=== PATIENT | male | born 1965 | race Two or more races ===

== ENCOUNTER 2024-07-23 08:57 | Emergency (ER) | payer MEDICAID, SELFPAY ==
[2024-07-23 09:16] VITALS: BP 133/82; PULSE 80; RESP 19; TEMP 36.6; O2SAT 97; BMI 31.6
--- NOTE | 2024-07-23 09:23 | XR_ITS ---
Examination: Foot, right, 3 views Technique: AP, oblique, lateral views foot, 3 views Date and time of exam: July 23, 2024 0932 hrs. Indications: Onset right heel pain beginning 2 weeks ago Findings: No acute fracture No dislocation Minor ossification in the Achilles insertion into the calcaneus No deon cortical bone obstruction Impression: No fracture No deon cortical bone obstruction If early osteomyelitis is a clinical consideration suggest MRI ankle without contrast follow-up
--- NOTE | 2024-07-23 09:54 | PD.EDWOUND ---
ED Wound/Laceration-RME/HPI General Chief Complaint: Wound/Laceration Stated Complaint: RIGHT FOOT WOUND INFECTION Time Seen by Provider: 07/23/24 09:16 Arrival date/time: 07/23/24 08:57 59-year-old male presents emergency department complains of skin sore to the right foot patient reports being diabetic has not taken his medication over a week Limitations: no limitations Related Data Previous Rx's ?Medication ?Instructions ?Recorded cyclobenzaprine 10 mg tablet 10 mg PO TID PRN muscle spasm #30 01/07/22 tabs ibuprofen 800 mg tablet 800 mg PO TID PRN pain #30 tabs 01/07/22 metformin 500 mg tablet 500 mg PO BID #60 tabs 01/07/22 clindamycin HCl 300 mg capsule 300 mg PO TID 7 days #21 caps 07/23/24 ibuprofen 800 mg tablet 800 mg PO TID PRN pain #30 tabs 07/23/24 Allergies Allergy/AdvReac Type Severity Reaction Status Date / Time No Known Allergies Allergy Verified 07/23/24 09:00 Review of Systems Review of Systems Systems Reviewed: All systems reviewed, normal except as documented Constitutional Constitutional: Reports system reviewed and no additional complaints, except as documented, Denies fever(s) and Denies headache(s) Eyes Eyes: Reports system reviewed and no additional complaints, except as documented and Denies blurry vision ENT Ears, Nose, Mouth, and Throat: Reports system reviewed and no additional complaints, except as documented, Denies headache(s), Denies nasal congestion and Denies nasal discharge Cardiovascular Cardiovascular: Reports system reviewed and no additional complaints, except as documented, Denies chest pain and Denies dyspnea Respiratory Respiratory: Reports system reviewed and no additional complaints, except as documented, Denies chest congestion, Denies cough and Denies dyspnea Gastrointestinal Gastrointestinal: Reports system reviewed and no additional complaints, except as documented and Denies abdominal pain Musculoskeletal Musculoskeletal: Reports system reviewed and no additional complaints, except as documented, Reports abnormal gait, Reports arthralgias, Denies deformity, Denies joint swelling, Denies numbness, Reports stiffness and Denies tingling Integumentary/Breasts Skin/Breast: Reports system reviewed and no additional complaints, except as documented and Denies rash Neurologic Neurologic: Reports system reviewed and no additional complaints, except as documented, Reports as per HPI, Reports abnormal gait, Denies headache(s), Denies numbness and Denies tingling Past Medical History Past Medical History NEUROLOGIC: Negative Cerebrovascular Accident or Alzheimer's Disease CARDIAC: Negative Cardiac Disorders, Myocardial Infarction, Angina or Congestive Heart Failure RESPIRATORY: Negative Chronic Obstructive Pulmonary Disease (COPD) or Emphysema GASTROINTESTINAL: Negative Liver Cancer or Pancreatic Cancer GENITOURINARY: Negative Renal Disease MUSCULOSKELETAL: Negative Muscular Dystrophy or Bone Cancer ENDOCRINE: Negative Endocrine Disorders, Diabetes Mellitus Type 1 or Diabetes Mellitus Type 2 HEMATOLOGIC: Negative Blood Disorders OTHER HISTORY: Negative Down Syndrome or Developmental Delay Social History SMOKING STATUS: Never smoker SUBSTANCE USE: does not use ED Exam General Limitations: Present no limitations General appearance: Present alert and in no apparent distress Head Head exam: Present atraumatic Eye Eye exam: Present normal appearance, PERRL and EOMI ENT ENT exam: Present normal exam, normal oropharynx and mucous membranes moist Neck Neck exam: Present normal inspection, full ROM and trachea midline Chest Chest inspection: Present normal inspection and symmetric chest wall rise Respiratory Respiratory exam: Present normal lung sounds bilaterally Cardiovascular Cardiovascular exam: Present regular rate, normal rhythm and normal heart sounds Abdominal Exam Abdominal exam: Present soft and normal bowel sounds Extremities Exam Extremities exam: Present full ROM, tenderness, normal capillary refill and other (Right foot pain); Absent joint swelling Back Exam Back exam: Present normal inspection and full ROM Neurological Exam Neurological exam: Present alert, oriented X3 and CN II-XII intact Psychiatric Psychiatric exam: Present normal affect and normal mood Skin Skin exam: Present warm, dry, intact and normal color Course Quality Measures none Orders Category Date Time Status XR foot comp RT min 3V Stat Exams 07/23/24 09:23 Completed Ibuprofen Tab [Motrin Tab] Med 07/23/24 09:23 Discontinued 800 mg PO X1 ONE Lidocaine 1% 20 ml [Xylocaine 1% 20 ML] Med 07/23/24 09:54 Discontinued 2.1 ml INFL X1 ONE cefTRIAXone [Rocephin] Med 07/23/24 09:54 Discontinued 1,000 mg IM X1 ONE Vital Signs Vital signs: Vital Signs Temperature 97.8 F 07/23/24 09:16 Pulse Rate 80 07/23/24 09:16 Respiratory Rate 19 07/23/24 09:16 Blood Pressure 133/82 H 07/23/24 09:16 Pulse Oximetry (%) 97 07/23/24 09:16 Oxygen Delivery Method Room Air 07/23/24 09:16 O2 saturation 97% room air wnl Wound / Laceration MDM Narrative MDM Narrative:: 59-year-old male presents emergency department complains of skin sore to the right foot patient reports being diabetic has not taken his medication over a week Patient well-appearing patient does not appear toxic in no acute distress On exam patient has small skin sore lateral aspect right foot and the right heel region Symptoms appear to be mild no drainage no ulceration X-ray of the right foot obtained no acute osteomyelitis noted Patient given Rocephin discharged with antibiotics Patient directed to take medication as prescribed and ask for referral to wound care For emergent concerns patient struck to return immediately Patient data External records reviewed:: [facility] previous records Clinical information provided by:: patient Social determinants that could affect healthcare access:: none Patient has the following chronic illnesses:: Diabetes How is presenting disease/condition affected by chronic disease/condition?: exacerbated by Evaluation data The following diagnostics were reviewed and interpreted by me:: radiology exam(s) Lab and/or radiology exams considered but not ordered:: Radiology obtained Interpretation Summary: Reviewed by me Medications / Prescriptions Medications or Prescriptions considered but not ordered:: Given Medication administrations:: Medication Administration History Discontinued Medications Ceftriaxone Sodium (Ceftriaxone Sod Inj 1,000 Mg Vial) 1,000 mg IM X1 ONE Stop: 07/23/24 09:55 Last Admin: 07/23/24 10:10 Dose: 1,000 mg Documented By: ARF Ibuprofen (Ibuprofen Tab 400 Mg Tablet) 800 mg PO X1 ONE Stop: 07/23/24 09:24 Last Admin: 07/23/24 10:10 Dose: 800 mg Documented By: ARF Lidocaine HCl (Lidocaine Hcl 1% 20 Ml Vial) 2.1 ml INFL X1 ONE Stop: 07/23/24 09:55 Last Admin: 07/23/24 10:11 Dose: 2.1 ml Documented By: ARF Given Consultations Consultation(s) initiated? (list below): No Diagnosis Wound Differential Diagnosis: abscess, abrasion and other (Skin sore, diabetic ulcer) Most likely diagnosis given after review of the tests above:: Skin sore foot Admission Indicated Admission indicated?: not indicated Admission Request Was there a request for admission?: No Disposition Plan Disposition Plan: Discharge Discharge Attestation Discharge Attestation: The patient and all family members were given an opportunity to ask questions and understood the discharge instructions. Discharge instructions specifically effects, indications for sooner follow up or return to the emergency department, and the expected course of current diagnosis. Patient condition: Stable Discharge Plan Plan Patient Disposition: HOME (Self Care) Disposition Comment: Stable Prescriptions/Referrals Prescriptions/Med Rec: New clindamycin HCl 300 mg capsule 300 mg PO TID 7 Days Qty: 21 0RF ibuprofen 800 mg tablet 800 mg PO TID PRN (Reason: pain) Qty: 30 0RF No Action cyclobenzaprine 10 mg tablet 10 mg PO TID PRN (Reason: muscle spasm) Qty: 30 0RF metformin 500 mg tablet 500 mg PO BID Qty: 60 0RF ibuprofen 800 mg tablet 800 mg PO TID PRN (Reason: pain) Qty: 30 0RF Referrals: No Primary/Family,Physician [Primary Care Provider] - 07/25/24 Problem List Clinical Impression: Skin sore Patient/Caregiver Discharge Instructions Additional Instructions: Please follow up with your primary care doctor in the next 24-48hrs for any worsening symptoms return here immediately Please take all your medications as prescribed Print Language: Malay Stand Alone Forms: Melanie Award Info., Patient Portal Info Letter PA/ROBERTO Supervising Physician MARSHA/ROBERTO Supervising Physician: Dr nickerson
[2024-07-23] MEDS: IBUPROFEN TAB 400 MG TABLET 800 MG PO (10:10)
[2024-07-23] MEDS: cefTRIAXone SOD INJ 1,000 MG VIAL 1000 MG IM (10:10)
[2024-07-23] MEDS: LIDOCAINE HCL 1% 20 ML VIAL 2.1 ML INFL (10:11)
== END 2024-07-23 10:17 | disposition home or self-care (01) ==
PROVIDERS: Emergency Provider Emergency Medicine
DX: E11.621 Type 2 diabetes mellitus with foot ulcer (principal); L97.419 Non-pressure chronic ulcer of right heel and midfoot with unspecified severity; Z79.84 Long term (current) use of oral hypoglycemic drugs
CPT/HCPCS: 73630; 96372; 99283; J0696; J3490; A9270

== ENCOUNTER → 2024-09-09 | Outpatient (CLI) | payer MEDICAID, SELFPAY ==
--- NOTE | 2024-09-09 09:46 | XR_ITS ---
Examination: Lumbar spine 3 views Technique one AP lateral coned lateral lower lumbar spine 3 views Exam date and time: September 09, 2024 0959 hours Comparison November 12, 2022 INDICATIONS: Lower back pain radiating down the right leg after lifting injury 3 days ago, chronic low back pain years, lumbar spine surgery 2 years ago. FINDINGS: Moderate osteopenia Lumbar levoscoliosis 8 degrees Transpedicular lumbar stabilization L3-S1 with satisfactory alignment Diffuse advanced lumbar degenerative disc disease Moderate lumbar spondylosis No lumbar fracture IMPRESSION: Diffuse advanced lumbar degenerative disc disease, most severe above the stabilization site, L2-L3 No lumbar fracture
== END | disposition home or self-care (01) ==
PROVIDERS: PCP Nurse Practitioner Family; Referring Provider Nurse Practitioner Family; Visit Provider Nurse Practitioner Family
DX: S39.92XA Unspecified injury of lower back, initial encounter (principal); X58.XXXA Exposure to other specified factors, initial encounter; M51.369 Other intervertebral disc degeneration, lumbar region without mention of lumbar back pain or lower extremity pain
CPT/HCPCS: 72100

== ENCOUNTER 2024-11-15 09:36 | Emergency (ER) | payer MEDICAID, SELFPAY ==
[2024-11-15 09:50] VITALS: BP 149/96; PULSE 91; RESP 18; TEMP 36.9; O2SAT 95; BMI 30.7
[2024-11-15] MEDS: OXYMETAZOLINE NAS SPRY 0.05% 15 ML BTL NASAL (10:08)
[2024-11-15 10:30] LABS: Basophils # (Auto) 0.1 Thou/mm3 (0.0-0.2); Basophils % (Auto) 1 % (0-2.5); Eosinophils # (Auto) 0.1 Thou/mm3 (0.0-0.5); Eosinophils % (Auto) 2 % (0-10); Hematocrit 40.1 % (41.0-53.0); Hemoglobin 14.2 g/dL (13.5-16.0); Immature Granulocytes % (Auto) 0 % (0-0); Immature Granulocytes Auto 0.02 Thou/mm3 (0.00-0.00); Lymphocytes % (Auto) 16 % (10-50); Mean Corpuscular HGB Conc 35.4 g/dl (31.0-37.0); Mean Corpuscular Hemoglobin 30.8 pg (25.0-35.0); Mean Corpuscular Volume 87 fL (80-100); Monocytes # (Auto) 0.5 Thou/mm3 (0.0-0.8); Monocytes % (Auto) 8 % (0-12); Neutrophils # (Auto) 4.8 Thou/mm3 (1.8-7.7); Neutrophils % (Auto) 73 % (37-80); Nucleated Red Blood Cell % 0 /100 WBC (0); Platelet Count 252 Thou/mm3 (140-440); RDW Standard Deviation 38.4 fL (35.1-43.9); Red Blood Count 4.61 Miln/mm3 (4.50-5.90); White Blood Count 6.6 Thou/mm3 (3.8-10.6)
[2024-11-15 10:50] LABS: INR 1.1 (0.9-1.3); Partial Thromboplastin Time 27.3 Seconds (22.0-36.0); Prothrombin Time 11.5 Seconds (9.0-12.2)
[2024-11-15 11:05] LABS: Alanine Aminotransferase 19 U/L (10-49); Albumin, Serum 4.2 gm/dL (3.5-5.0); Albumin/Globulin Ratio 1.7 (1.2-2.2); Alkaline Phosphatase 134 U/L (46-116); Anion Gap 8 (7-16); Aspartate Amino Transferase 25 U/L (0-34); BUN/Creatinine Ratio 16 Ratio (12-20); Bilirubin,Total 0.5 mg/dL (0.3-1.2); Blood Urea Nitrogen 13 mg/dL (9-23); Calcium 9.4 mg/dL (8.3-10.6); Calcium (Corrected) 9.4 mg/dL (8.5-10.1); Chloride 104 mMol/L (98-107); Creatinine (Component) 0.8 mg/dL (0.6-1.3); Estimated Creatinine Clearance 100.3 mL/min (>60); Globulin 2.5 gm/dL (2.3-3.5); Glucose 268 mg/dL (74-106); Osmolality,Calculated 282 (275-295); Potassium 3.5 mMol/L (3.4-5.1); Sodium 137 mMol/L (136-145); Total Protein 6.7 gm/dL (5.7-8.2); eGFR > 60 See Note
--- NOTE | 2024-11-15 11:20 | PD.EDEPIST ---
ED Epistaxis RME/HPI General Chief complaint: Epistaxis/Nasal Foreign Body Stated complaint: NOSEBLEED ON/OFF. WOKE UP THIS AM W/ NOSEBLEED Time Seen by Provider: 11/15/24 09:39 Arrival date/time: 11/15/24 09:36 59-year-old male history significant for diabetes presents for concerns for nosebleed from the left nare today patient reports no recent injury no headache dizziness or weakness Limitations: no limitations Related Data Previous Rx's ?Medication ?Instructions ?Recorded cyclobenzaprine 10 mg tablet 10 mg PO TID PRN muscle spasm #30 01/07/22 tabs ibuprofen 800 mg tablet 800 mg PO TID PRN pain #30 tabs 01/07/22 metformin 500 mg tablet 500 mg PO BID #60 tabs 01/07/22 ibuprofen 800 mg tablet 800 mg PO TID PRN pain #30 tabs 07/23/24 Allergies Allergy/AdvReac Type Severity Reaction Status Date / Time No Known Allergies Allergy Verified 11/15/24 09:39 Review of Systems Review of Systems Systems Reviewed: All systems reviewed, normal except as documented Constitutional Constitutional: Reports system reviewed and no additional complaints, except as documented, Denies fever(s) and Denies headache(s) Eyes Eyes: Reports system reviewed and no additional complaints, except as documented and Denies blurry vision ENT Ears, Nose, Mouth, and Throat: Reports system reviewed and no additional complaints, except as documented, Reports epistaxis, Denies headache(s), Denies nasal congestion and Denies nasal discharge Cardiovascular Cardiovascular: Reports system reviewed and no additional complaints, except as documented, Denies chest pain and Denies dyspnea Respiratory Respiratory: Reports system reviewed and no additional complaints, except as documented, Denies chest congestion, Denies cough and Denies dyspnea Gastrointestinal Gastrointestinal: Reports system reviewed and no additional complaints, except as documented and Denies abdominal pain Integumentary/Breasts Skin/Breast: Reports system reviewed and no additional complaints, except as documented and Denies rash Neurologic Neurologic: Reports system reviewed and no additional complaints, except as documented, Reports as per HPI and Denies headache(s) Past Medical History Past Medical History NEUROLOGIC: Negative Cerebrovascular Accident or Alzheimer's Disease CARDIAC: Negative Cardiac Disorders, Myocardial Infarction, Angina or Congestive Heart Failure RESPIRATORY: Negative Chronic Obstructive Pulmonary Disease (COPD) or Emphysema GASTROINTESTINAL: Negative Liver Cancer or Pancreatic Cancer GENITOURINARY: Negative Renal Disease MUSCULOSKELETAL: Negative Muscular Dystrophy or Bone Cancer ENDOCRINE: Negative Endocrine Disorders, Diabetes Mellitus Type 1 or Diabetes Mellitus Type 2 HEMATOLOGIC: Negative Blood Disorders OTHER HISTORY: Negative Down Syndrome or Developmental Delay Social History SMOKING STATUS: Current some day smoker SUBSTANCE USE: does not use ED Exam General Limitations: Present no limitations General appearance: Present alert and in no apparent distress Head Head exam: Present atraumatic, normocephalic and normal inspection Eye Eye exam: Present normal appearance, PERRL and EOMI ENT ENT exam: Present normal oropharynx and mucous membranes moist Expanded ENT Exam Nasal speculum exam: Left: epistaxis Neck Neck exam: Present normal inspection, full ROM and trachea midline Chest Chest inspection: Present normal inspection and symmetric chest wall rise Respiratory Respiratory exam: Present normal lung sounds bilaterally Cardiovascular Cardiovascular exam: Present regular rate, normal rhythm and normal heart sounds Abdominal Exam Abdominal exam: Present soft and normal bowel sounds Extremities Exam Extremities exam: Present normal inspection and full ROM Back Exam Back exam: Present normal inspection and full ROM Neurological Exam Neurological exam: Present alert, oriented X3 and CN II-XII intact Psychiatric Psychiatric exam: Present normal affect and normal mood Skin Skin exam: Present warm, dry, intact and normal color Course Quality Measures none Orders Category Date Time Status CBC Stat Lab 11/15/24 10:14 Completed Comprehensive Metabolic Panel Stat Lab 11/15/24 10:14 Completed Partial Thromboplastin Time Stat Lab 11/15/24 10:14 Completed Prothrombin Time with INR Stat Lab 11/15/24 10:14 Completed Oxymetazoline [place] 0.05% [Afrin Nasal [place]] Med 11/15/24 09:55 Discontinued See Dose Instructions NASAL X1 ONE Vital Signs Vital signs: Vital Signs Temperature 98.4 F 11/15/24 09:50 Pulse Rate 91 11/15/24 09:50 Respiratory Rate 18 11/15/24 09:50 Blood Pressure 149/96 H 11/15/24 09:50 Pulse Oximetry (%) 95 11/15/24 09:50 Oxygen Delivery Method Room Air 11/15/24 09:50 O2 saturation 95% room air with normal limits Epistaxis MDM Narrative MDM Narrative:: 59-year-old male history significant for diabetes presents for concerns for nosebleed from the left nare today patient reports no recent injury no headache dizziness or weakness On exam patient well-appearing patient does not appear ill or toxic patient's not appear in acute distress On exam patient does have nosebleed left nare Afrin spray applied nose packed while in the ER Lab work obtained no acute emergent findings noted Packing is removed patient has no active bleeding I did explain to the patient there is a possibility of rebleeding should symptoms persist or worsen he is instructed to return for reevaluation Patient discharged home in no distress to follow-up with primary care doctor in the next 24 to 48 hours and for any worsening symptoms to return to the ER immediately Patient data External records reviewed:: [facility] previous records Clinical information provided by:: patient Social determinants that could affect healthcare access:: none Patient has the following chronic illnesses:: None How is presenting disease/condition affected by chronic disease/condition?: no chronic disease Evaluation data The following diagnostics were reviewed and interpreted by me:: lab results Lab and/or radiology exams considered but not ordered:: Lab obtained Interpretation Summary: Reviewed by me Medications / Prescriptions Medications or Prescriptions considered but not ordered:: Given Medication administrations:: Medication Administration History Discontinued Medications Oxymetazoline HCl (Oxymetazoline [place] 0.05% 15 Ml Btl) 0 spray NASAL X1 ONE Stop: 11/15/24 09:56 Last Admin: 11/15/24 10:08 Dose: 2 spray Documented By: OA Given Consultations Consultation(s) initiated? (list below): No Diagnosis Epistaxis Differential Diagnosis: anterior epistaxis and posterior epistaxis Most likely diagnosis given after review of the tests above:: Nosebleed Admission Indicated Admission indicated?: not indicated Admission Request Was there a request for admission?: No Disposition Plan Disposition Plan: Discharge Discharge Attestation Discharge Attestation: The patient and all family members were given an opportunity to ask questions and understood the discharge instructions. Discharge instructions specifically effects, indications for sooner follow up or return to the emergency department, and the expected course of current diagnosis. Patient condition: Stable Discharge Plan Plan Patient Disposition: HOME (Self Care) Disposition Comment: Stable Prescriptions/Referrals Prescriptions/Med Rec: No Action cyclobenzaprine 10 mg tablet 10 mg PO TID PRN (Reason: muscle spasm) Qty: 30 0RF metformin 500 mg tablet 500 mg PO BID Qty: 60 0RF ibuprofen 800 mg tablet 800 mg PO TID PRN (Reason: pain) Qty: 30 0RF ibuprofen 800 mg tablet 800 mg PO TID PRN (Reason: pain) Qty: 30 0RF Referrals: No Primary/Family,Physician [Primary Care Provider] - In 1 week Problem List Clinical Impression: Anterior epistaxis Patient/Caregiver Discharge Instructions Education Materials: ED Epistaxis (Adult) Additional Instructions: Please follow up with your primary care doctor in the next 24-48hrs for any worsening symptoms return here immediately Print Language: Serbian Stand Alone Forms: Melanie Award Info., Patient Portal Info Letter PA/OBSTETRICAL ANESTHESIOLOGIST Supervising Physician PA/OBSTETRICAL ANESTHESIOLOGIST Supervising Physician: Dr so
== END 2024-11-15 12:47 | disposition home or self-care (01) ==
PROVIDERS: Nurse Practitioner Primary Care; Emergency Provider Emergency Medicine
DX: R04.0 Epistaxis (principal)
CPT/HCPCS: 36415; 80053; 85025; 85610; 85730; 99283; A9270

== ENCOUNTER → 2024-11-23 | Outpatient (CLI) | payer MEDICAID, SELFPAY ==
--- NOTE | 2024-11-23 08:30 | XR_ITS ---
Examination: MRI lumbar spine without contrast Date and time of exam: November 23, 2024 0826 hours Comparison January 07, 2022 INDICATIONS: Low back pain beginning 3 years ago, status post lumbar spine surgery 2021 Technique: Multiple MRI axial and sagittal sections lumbar spine. Sagittal T2-weighted images, TR 3500, TE 118 T1 weighted transverse sections, TR 688 T8.5, T2-weighted sagittal sections T1 weighted sagittal sections TR 621, TE 30 T2 axial sections, TR 4, 190, TE 84. Findings: Transpedicular lumbar stabilization L3-S1 with satisfactory alignment Diffuse lumbar disc desiccation L5-S1 6 mm central lumbar disc bulge extending to the foraminal regions with mild bilateral L5 ganglionic compression L2-L3 4 mm central lumbar disc bulge IMPRESSION: Status post lumbar stabilization L3-S1 with anatomic alignment L5-S1 6 mm central lumbar disc bulge extending to the foraminal regions with mild bilateral L5 ganglionic compression L2-L3 4 mm central lumbar disc bulge
== END | disposition home or self-care (01) ==
PROVIDERS: PCP Nurse Practitioner Family; Referring Provider Nurse Practitioner Family; Visit Provider Nurse Practitioner Family
DX: G95.20 Unspecified cord compression (principal); M51.369 Other intervertebral disc degeneration, lumbar region without mention of lumbar back pain or lower extremity pain
CPT/HCPCS: 72148

== ENCOUNTER → 2025-02-08 | Outpatient (CLI) | payer MEDICAID, SELFPAY ==
--- NOTE | 2025-02-08 | XR_ITS ---
Examination: Wrist, right 2 views Technique: Wrist AP, lateral right wrist 2 views Date and time of exam: February 08, 2025 1140 hours INDICATIONS: Right wrist pain beginning 5 days ago. FINDINGS: Mild osteoarthritis radiocarpal navicular trapezium first carpometacarpal joints No fractures No erosive arthritis IMPRESSION: Osteoarthritis as above
--- NOTE | 2025-02-08 | XR_ITS ---
Examination: Right hand 2 views Technique one AP lateral right hand 2 views Date and time: February 08, 2025 1142 hours INDICATIONS: Right hand pain beginning 5 days ago. FINDINGS: Mild osteoarthritis navicular trapezium radiocarpal and first carpometacarpal joints No erosive arthritis Small old bone density 2 mm at the proximal interphalangeal joint fifth digit with mild osteoarthritis at this site IMPRESSION: Mild osteoarthritis as above No erosive arthritis No acute fracture
== END | disposition home or self-care (01) ==
DX: M15.2 Bouchard's nodes (with arthropathy) (principal)
CPT/HCPCS: 73100; 73120

== ENCOUNTER 2025-02-19 07:05 | Emergency (ER) | payer MEDICAID, SELFPAY ==
[2025-02-19 07:07] VITALS: BMI 30.2
[2025-02-19 07:42] VITALS: BP 127/79; PULSE 88; RESP 18; TEMP 36.8; O2SAT 97
--- NOTE | 2025-02-19 07:48 | PD.EDRME ---
Rapid Medical Screening Exam RME Arrival date/time: 02/19/25 07:05 This is a 59-year-old male that comes in with complaints of abdominal pain abdominal cramping nausea vomiting that started last night. Patient has diffuse abdominal pain. Patient has a history of diabetes high blood pressure. I have greeted and performed a focused initial assessment of this patient. Initial appropriate labs ordered at this time. A comprehensive ED assessment and evaluation of the patient and analysis of all test and completion of medical decision making process will be conducted by additional ED provider. Chief Complaint: Nausea/Vomiting/Diarrhea Time Seen by Provider: 02/19/25 07:18 Vital signs: Vital Signs Temperature 98.3 F 02/19/25 07:42 Pulse Rate 88 02/19/25 07:42 Respiratory Rate 18 02/19/25 07:42 Blood Pressure 127/79 02/19/25 07:42 Pulse Oximetry (%) 97 02/19/25 07:42 Oxygen Delivery Method Room Air 02/19/25 07:42
[2025-02-19 08:34] LABS: Alanine Aminotransferase 21 U/L (10-49); Albumin, Serum 4.5 gm/dL (3.5-5.0); Albumin/Globulin Ratio 1.9 (1.2-2.2); Alkaline Phosphatase 110 U/L (46-116); Anion Gap 10 (7-16); Aspartate Amino Transferase 26 U/L (0-34); BUN/Creatinine Ratio 18 Ratio (12-20); Bilirubin,Total 1.2 mg/dL (0.3-1.2); Blood Urea Nitrogen 14 mg/dL (9-23); Calcium 9.6 mg/dL (8.3-10.6); Calcium (Corrected) 9.6 mg/dL (8.5-10.1); Carbon Dioxide 25.6 mMol/L (20.0-31.0); Chloride 102 mMol/L (98-107); Creatinine (Component) 0.8 mg/dL (0.6-1.3); Estimated Creatinine Clearance 99.5 mL/min (>60); Globulin 2.4 gm/dL (2.3-3.5); Glucose 178 mg/dL (74-106); Lipase 69 U/L (12-53); Osmolality,Calculated 280 (275-295); Potassium 4.4 mMol/L (3.4-5.1); Sodium 138 mMol/L (136-145); Total Protein 6.9 gm/dL (5.7-8.2); eGFR > 60 See Note
[2025-02-19 08:39] LABS: Basophils # (Auto) 0.1 Thou/mm3 (0.0-0.2); Basophils % (Auto) 0 % (0-2.5); Eosinophils # (Auto) 0.2 Thou/mm3 (0.0-0.5); Eosinophils % (Auto) 1 % (0-10); Hematocrit 46.2 % (41.0-53.0); Hemoglobin 15.9 g/dL (13.5-16.0); Immature Granulocytes % (Auto) 0 % (0-0); Immature Granulocytes Auto 0.05 Thou/mm3 (0.00-0.00); Lymphocytes # (Auto) 0.5 Thou/mm3 (1.0-4.8); Lymphocytes % (Auto) 4 % (10-50); Mean Corpuscular HGB Conc 34.4 g/dl (31.0-37.0); Mean Corpuscular Hemoglobin 31.1 pg (25.0-35.0); Mean Corpuscular Volume 90 fL (80-100); Monocytes # (Auto) 0.5 Thou/mm3 (0.0-0.8); Monocytes % (Auto) 4 % (0-12); Neutrophils # (Auto) 10.3 Thou/mm3 (1.8-7.7); Neutrophils % (Auto) 90 % (37-80); Nucleated Red Blood Cell % 0 /100 WBC (0); Platelet Count 231 Thou/mm3 (140-440); RDW Standard Deviation 40.1 fL (35.1-43.9); Red Blood Count 5.11 Miln/mm3 (4.50-5.90); White Blood Count 11.5 Thou/mm3 (3.8-10.6)
[2025-02-19 11:14] LABS: Collection Type, Urine Voided
[2025-02-19 11:31] LABS: Bilirubin,Urine Negative (Negative); Blood,Urine Negative (Negative); Clarity,Urine Clear (Clear/Hazy); Color,Urine Yellow (Lt Yel-Yel); Culture Indicated,Urine Not Indicated; Glucose, Urine 2+ (Negative); Ketones,Urine Trace (Negative); Leukocyte Esterase,Urine Negative (Negative); Nitrite,Urine Negative (Negative); PH,Urine 6.5 (5.0-7.0); Protein,Urine Trace (Neg - Trace); RBC,Urine 2 /hpf (0-3); Specific Gravity,Urine 1.034 (1.001-1.035); Squamous Epithelial Cell,Urine 2 /hpf (0-5); Urobilinogen,Urine Negative mg/dL (0.0-1.0); WBC,Urine 4 /hpf (0-5)
[2025-02-19 11:37] LABS: Amphetamine/Methamp Scrn,U Negative (Negative); Barbiturate Screen,Urine Negative (Negative); Benzodiazepines Screen,Urine Negative (Negative); Benzoylecgonine Screen, Ur Negative (Negative); Fentanyl Screen,Urine Negative (Negative); Opiate Screen,Urine Negative (Negative); THC Screen,Urine Negative (Negative)
--- NOTE | 2025-02-19 11:38 | PC.NURSE ---
NO ANSWER X2 [id number]
--- NOTE | 2025-02-19 11:42 | PC.NURSE ---
NO ANSWER X3 PT ELOPED
== END 2025-02-19 11:43 | disposition left against medical advice (07) ==
LOC: SERX 07:52
PROVIDERS: Nurse Practitioner Family; Emergency Provider Family Medicine
DX: Z53.29 Procedure and treatment not carried out because of patient's decision for other reasons (principal); R11.2 Nausea with vomiting, unspecified; E11.9 Type 2 diabetes mellitus without complications
CPT/HCPCS: 36415; 80053; 80307; 81001; 83690; 85025; 99281

== ENCOUNTER 2025-03-05 15:35 | Emergency (ER) | payer MEDICAID, SELFPAY ==
--- NOTE | 2025-03-05 15:40 | PD.EDALLER ---
ED Allergic Reaction RME/HPI General Chief complaint: Allergic Reaction Stated complaint: ITCHING X2 HOURS, TOOK A PILL Time Seen by Provider: 03/05/25 15:37 Arrival date/time: 03/05/25 15:35 Limitations: no limitations RME / HPI RME / HPI narrative: Took Radha Neurobion 2 hours ago and developed diffuse itching. No chest pain, abdominal pain, nausea, or vomiting. He has no chest pain or syncope. He has no wheezing or shortness of breath. He denies any chronic medical conditions or known allergies. Related Data Previous Rx's ?Medication ?Instructions ?Recorded cyclobenzaprine 10 mg tablet 10 mg PO TID PRN muscle spasm #30 01/07/22 tabs ibuprofen 800 mg tablet 800 mg PO TID PRN pain #30 tabs 01/07/22 metformin 500 mg tablet 500 mg PO BID #60 tabs 01/07/22 ibuprofen 800 mg tablet 800 mg PO TID PRN pain #30 tabs 07/23/24 diphenhydramine HCl 25 mg capsule 25 mg PO TID PRN allergy symptoms 03/05/25 (Benadryl) #14 caps prednisone 50 mg tablet 50 mg PO QDAY #5 tabs 03/05/25 Allergies Allergy/AdvReac Type Severity Reaction Status Date / Time No Known Allergies Allergy Verified 03/05/25 15:38 Review of Systems Review of Systems Systems Reviewed: All systems reviewed, normal except as documented ED Exam General Limitations: Present no limitations General appearance: Present alert and in distress Head Head exam: Present atraumatic Eye Eye exam: Present normal appearance, PERRL and EOMI ENT ENT exam: Present normal exam, normal oropharynx and mucous membranes moist Neck Neck exam: Present normal inspection, full ROM and trachea midline Chest Chest inspection: Present normal inspection and symmetric chest wall rise Respiratory Respiratory exam: Present normal lung sounds bilaterally; Absent respiratory distress or wheezes Cardiovascular Cardiovascular exam: Present regular rate, normal rhythm and normal heart sounds Abdominal Exam Abdominal exam: Present soft Extremities Exam Extremities exam: Present normal inspection and full ROM Back Exam Back exam: Present normal inspection and full ROM Neurological Exam Neurological exam: Present alert and oriented X3 Psychiatric Psychiatric exam: Present normal affect and normal mood Skin Skin exam: Present warm, dry, intact and normal color Course Quality Measures none Orders Category Date Time Status Dexamethasone Inj [Decadron Inj] Med 03/05/25 15:37 Discontinued 8 mg IM X1 ONE DiphenhydrAMINE INJ [Benadryl Inj] Med 03/05/25 15:37 Discontinued 50 mg IM X1 ONE Famotidine [Pepcid] Med 03/05/25 15:38 Discontinued 20 mg PO X1 ONE Vital Signs Vital signs: Vital Signs Temperature 98.6 F 03/05/25 15:43 Pulse Rate 98 03/05/25 15:43 Respiratory Rate 26 H 03/05/25 15:43 Blood Pressure 130/82 03/05/25 15:43 Pulse Oximetry (%) 97 03/05/25 15:43 Oxygen Delivery Method Room Air 03/05/25 15:43 Allergic Reaction MDM Narrative MDM Narrative:: Took Radha Neurobion 2 hours ago and developed diffuse itching. No chest pain, abdominal pain, nausea, or vomiting. He has no chest pain or syncope. He has no wheezing or shortness of breath. He denies any chronic medical conditions or known allergies. On exam, patient is nontoxic-appearing. He he is itching his bilateral arms. No urticaria or raised papules are noted. He has no respiratory distress. Patient was given a dose of Benadryl, Pepcid, and Decadron here. Patient had significant improvement from this. We will continue prednisone and antihistamines for the next 5 days. He agrees to return as needed for any worsening or emergent changes. Patient data External records reviewed:: None Clinical information provided by:: patient Social determinants that could affect healthcare access:: none Patient has the following chronic illnesses:: n/a How is presenting disease/condition affected by chronic disease/condition?: no chronic disease Evaluation data The following diagnostics were reviewed and interpreted by me:: other (specify) (n/a) Lab and/or radiology exams considered but not ordered:: n/a Interpretation Summary: n/a Medications / Prescriptions Medications or Prescriptions considered but not ordered:: n/a Medication administrations:: Medication Administration History Discontinued Medications Dexamethasone Sodium Phosphate (Dexamethasone Sod Phos Inj 10 Mg/Ml Vial) 8 mg IM X1 ONE Stop: 03/05/25 15:38 Last Admin: 03/05/25 15:52 Dose: 8 mg Documented By: CARROL Diphenhydramine HCl (Diphenhydramine Inj 50 Mg/Ml Vial) 50 mg IM X1 ONE Stop: 03/05/25 15:38 Last Admin: 03/05/25 15:53 Dose: 50 mg Documented By: CARROL Famotidine (Famotidine 20 Mg Tablet) 20 mg PO X1 ONE Stop: 03/05/25 15:39 Last Admin: 03/05/25 15:52 Dose: 20 mg Documented By: CARROL See above Consultations Consultation(s) initiated? (list below): No Diagnosis Differential Diagnosis allergic reaction: allergic reaction, angioedema, contact dermatitis, adverse reaction to drug and urticaria Most likely diagnosis given after review of the tests above:: Acute reaction Admission Indicated Admission indicated?: not indicated Admission Request Was there a request for admission?: No Disposition Plan Disposition Plan: Discharge Discharge Attestation Discharge Attestation: The patient and all family members were given an opportunity to ask questions and understood the discharge instructions. Discharge instructions specifically effects, indications for sooner follow up or return to the emergency department, and the expected course of current diagnosis. Patient condition: Stable Discharge Plan Plan Patient Disposition: HOME (Self Care) Patient condition on transfer: Stable Prescriptions/Referrals Prescriptions/Med Rec: New diphenhydramine HCl [Benadryl] 25 mg capsule 25 mg PO TID PRN (Reason: allergy symptoms) Qty: 14 0RF prednisone 50 mg tablet 50 mg PO QDAY Qty: 5 0RF No Action cyclobenzaprine 10 mg tablet 10 mg PO TID PRN (Reason: muscle spasm) Qty: 30 0RF metformin 500 mg tablet 500 mg PO BID Qty: 60 0RF ibuprofen 800 mg tablet 800 mg PO TID PRN (Reason: pain) Qty: 30 0RF ibuprofen 800 mg tablet 800 mg PO TID PRN (Reason: pain) Qty: 30 0RF Referrals: No Primary/Family,Physician [Primary Care Provider] - In 1 week Problem List Clinical Impression: Acute allergic reaction Patient/Caregiver Discharge Instructions Education Materials: ED Medicine Reaction: Allergic Additional Instructions: - Use of provided medications and follow-up with your clinic this week. - Please return at anytime for any worsening or emergent changes. Print Language: Georgian Stand Alone Forms: Melanie Award Info., Patient Portal Info Letter
[2025-03-05 15:43] VITALS: BP 130/82; PULSE 98; RESP 26; TEMP 37; O2SAT 97
[2025-03-05] MEDS: FAMOTIDINE 20 MG TABLET PO (15:52)
[2025-03-05] MEDS: DEXAMETHASONE SOD PHOS INJ 10 MG/ML VIAL 8 MG IM (15:52)
[2025-03-05 16:29] VITALS: BP 118/70; PULSE 77; RESP 18; TEMP 36.7; O2SAT 99
== END 2025-03-05 16:30 | disposition home or self-care (01) ==
PROVIDERS: Emergency Provider Emergency Medicine
DX: T78.40XA Allergy, unspecified, initial encounter (principal)
CPT/HCPCS: 96372; 99283; J1100; J1200; A9270

== ENCOUNTER 2025-04-17 21:50 | Emergency (ER) | payer MEDICAID, SELFPAY ==
[2025-04-17 21:51] VITALS: BP 128/76; PULSE 83; RESP 17; TEMP 37.3; O2SAT 97
--- NOTE | 2025-04-17 22:35 | XR_ITS ---
Examination: CT brain head without contrast. 2-D sagittal coronal reconstructions Date and time of exam:April 17, 2025, 11:01 PM INDICATIONS: Headache 2 days CTDI: vol (mGy):51.6 DLP: (mGycm):1024 Technique: Multiple CT axial sections of the brain have been obtained, 5 mm slice thickness. Contrast has not been administered. 2-D sagittal, coronal reconstructions have been obtained Low dose protocols were performed. One or more of the following dose reduction techniques were used; automated exposure control, adjustment of the mA and/or KV according to patient size, use of iterative reconstruction technique. Findings: No significant ventricular enlargement. Intra-axial or extra-axial hemorrhage density is not seen. No mass effect or midline shift Basal cisterns are not remarkable. Fourth ventricle is midline. Cranial vault intact. Impression: Negative for acute hemorrhage, mass effect or midline shift Advise clinical correlation and follow up accordingly
--- NOTE | 2025-04-17 22:36 | XR_ITS ---
Examination: PA chest single view TECHNIQUE: Upright PA chest single view Date and time: April 17, 2025 1046 hours INDICATIONS: Chest pain and shortness of breath today FINDINGS: No marked size. Lungs are clear. The osseous structures are intact IMPRESSION: No active disease
--- NOTE | 2025-04-17 22:37 | PD.EDRME ---
Rapid Medical Screening Exam RME Arrival date/time: 04/17/25 21:50 This is a case of 59-year-old male with no medical history came in in the emergency room due to chest pain and headache today worsening of the pain this patient decided to sought consult here in the emergency room Chief Complaint: Chest Pain
[2025-04-18 00:03] LABS: Basophils # (Auto) 0.1 Thou/mm3 (0.0-0.2); Basophils % (Auto) 1 % (0-2.5); Eosinophils # (Auto) 0.2 Thou/mm3 (0.0-0.5); Eosinophils % (Auto) 3 % (0-10); Hematocrit 42.5 % (41.0-53.0); Hemoglobin 14.8 g/dL (13.5-16.0); Immature Granulocytes Auto 0.05 Thou/mm3 (0.00-0.00); Lymphocytes # (Auto) 2.3 Thou/mm3 (1.0-4.8); Lymphocytes % (Auto) 28 % (10-50); Mean Corpuscular HGB Conc 34.8 g/dl (31.0-37.0); Mean Corpuscular Hemoglobin 32.0 pg (25.0-35.0); Mean Corpuscular Volume 92 fL (80-100); Monocytes # (Auto) 0.7 Thou/mm3 (0.0-0.8); Monocytes % (Auto) 8 % (0-12); Neutrophils # (Auto) 4.9 Thou/mm3 (1.8-7.7); Neutrophils % (Auto) 60 % (37-80); Nucleated Red Blood Cell # 0.00 Thou/mm3 (0.00-0.00); Nucleated Red Blood Cell % 0 /100 WBC (0); Platelet Count 228 Thou/mm3 (140-440); RDW Standard Deviation 41.8 fL (35.1-43.9); Red Blood Count 4.62 Miln/mm3 (4.50-5.90); White Blood Count 8.2 Thou/mm3 (3.8-10.6)
[2025-04-18] MEDS: ACETAMINOPHEN w/COD 300-30 TABLET 2 TAB PO (00:16)
[2025-04-18 00:21] LABS: B-Type Natriuretic Peptide < 20 pg/mL (0-100)
[2025-04-18 00:23] LABS: Alanine Aminotransferase 19 U/L (10-49); Albumin, Serum 4.5 gm/dL (3.5-5.0); Albumin/Globulin Ratio 2.0 (1.2-2.2); Alkaline Phosphatase 108 U/L (46-116); Anion Gap 12 (7-16); Aspartate Amino Transferase 22 U/L (0-34); BUN/Creatinine Ratio 20 Ratio (12-20); Bilirubin,Total 0.5 mg/dL (0.3-1.2); Blood Urea Nitrogen 16 mg/dL (9-23); Calcium 10.6 mg/dL (8.3-10.6); Calcium (Corrected) 10.6 mg/dL (8.5-10.1); Carbon Dioxide 23.4 mMol/L (20.0-31.0); Chloride 108 mMol/L (98-107); Creatinine (Component) 0.8 mg/dL (0.6-1.3); Globulin 2.3 gm/dL (2.3-3.5); Glucose 129 mg/dL (74-106); Osmolality,Calculated 288 (275-295); Potassium 4.0 mMol/L (3.4-5.1); Sodium 143 mMol/L (136-145); Total Protein 6.8 gm/dL (5.7-8.2); Troponin I < 0.002 ng/mL (0.0-0.045); eGFR > 60 See Note
--- NOTE | 2025-04-18 01:08 | EDNOTE_ITS ---
ED Chest Pain RME/HPI General Chief Complaint: Chest Pain Stated Complaint: CHEST PAIN AND MERAZ Time Seen by Provider: 04/17/25 22:54 Arrival date/time: 04/17/25 21:50 RME / HPI RME / HPI narrative: 04/17/25 21:50 This is a case of 59-year-old male with no medical history came in in the emergency room due to chest pain and headache today worsening of the pain this patient decided to sought consult here in the emergency room See MDM for HPI documentation. Related Data Previous Rx's ?Medication ?Instructions ?Recorded cyclobenzaprine 10 mg tablet 10 mg PO TID PRN muscle s pasm #30 01/07/22 tabs ibuprofen 800 mg tablet 800 mg PO TID PRN pain #30 t abs 01/07/22 metformin 500 mg tablet 500 mg PO BID #60 tabs 01/07 ibuprofen 800 mg tablet 800 mg PO TID PRN pain #30 t abs 07/23/24 diphenhydramine HCl 25 mg capsule 25 mg PO TID PRN all ergy symptoms 03/05/25 (Benadryl) #14 caps prednisone 50 mg tablet 50 mg PO QDAY #5 tabs acetaminophen 300 mg-codeine 30 mg 2 tab PO Q8H PRN pa in #20 tabs 04/18/25 tablet Allergies Allergy/AdvReac Type Severity Reaction Status Date / Time No Known Allergies Allergy Verified 04/17/25 21:55 Review of Systems Review of Systems Systems Reviewed: All systems reviewed, normal except as documented Past Medical History Past Medical History NEUROLOGIC: Negative Cerebrovascular Accident or Alzheimer's Disease CARDIAC: Negative Cardiac Disorders, Myocardial Infarction, Angina or Congestive Heart Failure RESPIRATORY: Negative Chronic Obstructive Pulmonary Disease (COPD) or Emphysema GASTROINTESTINAL: Negative Liver Cancer or Pancreatic Cancer GENITOURINARY: Negative Renal Disease MUSCULOSKELETAL: Negative Muscular Dystrophy or Bone Cancer ENDOCRINE: Negative Endocrine Disorders, Diabetes Mellitus Type 1 or Diabetes Mellitus Type 2 HEMATOLOGIC: Negative Blood Disorders OTHER HISTORY: Negative Down Syndrome or Developmental Delay Social History SMOKING STATUS: Never smoker SUBSTANCE USE: does not use ED Exam Narrative Physical exam: See [facility] for physical exam documentation. Course Quality Measures none Orders Category Date Time Status EKG (ED ONLY) *Do not use* NOW Care 04/17/25 22:[address] head/brain wo con Stat Exams 04/17/25 22:35 Completed EKG (ED Only) Stat Exams 04/17/25 22:35 Ordered EKG (ED Only) Stat Exams 04/17/25 22:35 Ordered XR chest 1V portable Stat Exams 04/17/25 22:36 Completed BNP [B-Type Natriuretic Peptide] Stat Lab 04/17/25 23:44 Completed CBC Stat Lab 04/17/25 23:44 Completed CMP [Comprehensive Metabolic Panel] Stat Lab 04/17/25 23:44 Completed Troponin I Stat Lab 04/17/25 23:44 Completed ACETAMINOPHEN w/COD 300-30 [Tylenol w/Cod #3] Med 04/17/25 23:54 Discontinued 2 tab PO X1 ONE Vital Signs Vital signs: Vital Signs Temperature 99.1 F 04/17/25 21:51 Pulse Rate 83 04/17/25 21:51 Respiratory Rate 17 04/17/25 21:51 Blood Pressure 128/76 04/17/25 21:51 Pulse Oximetry (%) 97 04/17/25 21:51 Oxygen Delivery Method Room Air 04/17/25 21:51 Chest Pain MDM Narrative MDM Narrative:: This section includes all my notes and documentations, including HPI, PE, and ED course. Nathaniel Smith MD HPI: 59yo male here with chest pain and headache for the last several days. Patient has been sneezing a lot. No shortness of breath. No syncope or near syncope. No speech or visual impairment. No loss of power in the arms or legs. No cough. No fever chills or bodyaches. No unusual fatigue or malaise. No other complaints reported. ROS: All negative except as documented in HPI. Physical Exam: General:? Alert and oriented.? No acute distress.?? Eyes:? Conjunctivae and lids clear.? EOMI.? PERRL. ENT:? No nasal congestion.? Pharynx normal.? Tympanic membrane normal bilaterally.??? Neck:? Supple.? No carotid bruit.? No JVD.?? Heart:? RRR.? Lungs:? No respiratory distress.? Good air movement.? No rhonchi, wheezing, rales.?? Chest:? No tenderness. Abdomen:? Soft and nontender.? Normal bowel sounds.? No distension.? No rebound or guarding.?? Back:? No CVA tenderness.?? Legs:? No clubbing, cyanosis, edema.? Skin:? Warm and dry.?? Neuro:? Alert and oriented X 3.? Cranial Nerves II-XII grossly intact.? No peripheral motor deficits. I reviewed all diagnostic test results. My interpretation of the EKG is sinus rhythm with no acute ST?T changes. My interpretation of the chest x-ray is NAD. My review of the CT head report is NAD. Blood tests are unremarkable. At this point, diagnoses include tension headache and chest wall pain. Treatment here included Tylenol with Codeine. Significant improvement noted. Recommended more outpatient workup. Based on my best medical judgment, made decision no further evaluation or treatment indicated at this time. Patient understands and agrees to the discharge instructions customized and printed, see below. Discharge instructions from Dr. Smith: 1. After extensive evaluation, there is no life-threatening condition.? Such as stroke or brain tumor or heart attack or pneumothorax (collapsed lung). 2. Your pain is originating from the chest wall and not from an internal organ.? The chest wall has many joints and muscles between the ribs, so sprains and strains are common.?? Your headache is due to tension headache, see attached handout. 3. Apply ice or heat if helpful.? Ibuprofen 800 mg every 6-8 hours as needed. Tylenol codeine for severe pain. 4. See a private doctor on 04/19/2025 for recheck and further care. To make sure there is no serious underlying heart condition, ask to help you get more tests for your heart that cannot be done here in the ER.? Such as Holter Monitor (cardiac monitoring at home from a day to even a month), heart stress test (on treadmill or with medication), echocardiogram (imaging of your heart structures), heart catherization (checking for blockages in your heart arteries), and a referral to see a Italian Tutor.? And for the headache, asked for MRI imaging of the brain and referral to see neurologist. 5. Seek immediate medical care with worsening or with any concerns.?? Nathaniel Smith MD Patient data External records reviewed:: [facility] previous records (Per chart review, patient was seen here on 03/05/25 for allergic reaction.) Clinical information provided by:: patient Social determinants that could affect healthcare access:: none Patient has the following chronic illnesses:: none How is presenting disease/condition affected by chronic disease/condition?: no chronic disease Evaluation data The following diagnostics were reviewed and interpreted by me:: lab results, radiology exam(s) and EKG tracing(s) Lab and/or radiology exams considered but not ordered:: none Interpretation Summary: I reviewed all diagnostic test results. My interpretation of the EKG is sinus rhythm with no acute ST?T changes. My interpretation of the chest x-ray is NAD. My review of the CT head report is NAD. Blood tests are unremarkable. Medications / Prescriptions Medications or Prescriptions considered but not ordered:: none Medication administrations:: Medication Administration History Discontinued Medications Acetaminophen/Codeine Phosphate (Acetaminophen W/Cod 300-30 Tablet) 2 tab PO X1 ONE Stop: 04/17/25 23:55 Last Admin: 04/18/25 00:16 Dose: 2 tab Documented By: EE Tylenol with Codeine Consultations Consultation(s) initiated? (list below): No Diagnosis Chest Pain Differential Diagnosis: pneumothorax, stable angina, unstable angina pectoris, atypical chest pain, st elevation myocardial infarction, costochondritis and other (CVA, brain tumor, tension headache, migraine headache) Most likely diagnosis given after review of the tests above:: Tension headache, Chest wall pain Admission Indicated Admission indicated?: not indicated Explain why admission is indicated or not indicated:: With significant improvement and no condition needing emergent intervention, there was no indication for admission. Admission Request Was there a request for admission?: No Disposition Plan Disposition Plan: Discharge Discharge Attestation Discharge Attestation: The patient and all family members were given an opportunity to ask questions and understood the discharge instructions. Discharge instructions specifically effects, indications for sooner follow up or return to the emergency department, and the expected course of current diagnosis. Patient condition: Stable Discharge Plan Plan Patient Disposition: HOME (Self Care) Prescriptions/Referrals Prescriptions/Med Rec: New acetaminophen-codeine 300-30 mg tablet 2 tab PO Q8H MDD 6 PRN (Reason: pain) Qty: 20 0RF No Action cyclobenzaprine 10 mg tablet 10 mg PO TID PRN (Reason: muscle spasm) Qty: 30 0RF metformin 500 mg tablet 500 mg PO BID Qty: 60 0RF ibuprofen 800 mg tablet 800 mg PO TID PRN (Reason: pain) Qty: 30 0RF ibuprofen 800 mg tablet 800 mg PO TID PRN (Reason: pain) Qty: 30 0RF diphenhydramine HCl [Benadryl] 25 mg capsule 25 mg PO TID PRN (Reason: allergy symptoms) Qty: 14 0RF prednisone 50 mg tablet 50 mg PO QDAY Qty: 5 0RF Referrals: No Primary/Family,Physician [Primary Care Provider] - In 1 week Problem List Clinical Impression: Headache, Chest wall pain Patient/Caregiver Discharge Instructions Discharge Activity: activity as tolerated Education Materials: ED Chest Pain, Uncertain Cause, ED Headache, Tension Additional Instructions: Discharge instructions from Dr. Smith: 1. After extensive evaluation, there is no life-threatening condition.? Such as stroke or brain tumor or heart attack or pneumothorax (collapsed lung). 2. Your pain is originating from the chest wall and not from an internal organ.? The chest wall has many joints and muscles between the ribs, so sprains and strains are common.?? Your headache is due to tension headache, see attached handout. 3. Apply ice or heat if helpful.? Ibuprofen 800 mg every 6-8 hours as needed. Tylenol codeine for severe pain. 4. See a private doctor on 04/19/2025 for recheck and further care. To make sure there is no serious underlying heart condition, ask to help you get more tests for your heart that cannot be done here in the ER.? Such as Holter Monitor (cardiac monitoring at home from a day to even a month), heart stress test (on treadmill or with medication), echocardiogram (imaging of your heart structures), heart catherization (checking for blockages in your heart arteries), and a referral to see a Italian Tutor.? And for the headache, asked for MRI imaging of the brain and referral to see neurologist. 5. Seek immediate medical care with worsening or with any concerns.?? Print Language: Luxembourgish Stand Alone Forms: Melanie Award Info., Patient Portal Info Letter
[2025-04-18 01:22] VITALS: BP 118/76; PULSE 76; RESP 18; TEMP 36.8; O2SAT 98
== END 2025-04-18 01:24 | disposition home or self-care (01) ==
PROVIDERS: Nurse Practitioner Family; Emergency Provider Emergency Medicine
DX: R51.9 Headache, unspecified (principal); R07.89 Other chest pain
CPT/HCPCS: 36415; 70450; 71045; 80053; 83880; 84484; 85025; 93005; 99283; A9270

== ENCOUNTER 2025-05-16 20:43 | Emergency (ER) | payer MEDICAID, SELFPAY ==
[2025-05-16 20:44] VITALS: BMI 30.4
[2025-05-16 21:08] VITALS: BP 131/79; PULSE 94; RESP 18; TEMP 37.1; O2SAT 95
--- NOTE | 2025-05-16 21:23 | EDNOTE_ITS ---
ED Skin Abcess FB-RME/HPI General Chief complaint: Skin/Abscess/Foreign Body Stated complaint: RASH ON RIGHT UPPER ARM Time Seen by Provider: 05/16/25 21:08 Arrival date/time: 05/16/25 20:43 59M with no significant PMH presents to ED with 3 days of RUE rash and pain. Limitations: no limitations Related Data Previous Rx's ?Medication ?Instructions ?Recorded cyclobenzaprine 10 mg tablet 10 mg PO TID PRN muscle s pasm #30 01/07/22 tabs ibuprofen 800 mg tablet 800 mg PO TID PRN pain #30 t abs 01/07/22 metformin 500 mg tablet 500 mg PO BID #60 tabs 01/07 ibuprofen 800 mg tablet 800 mg PO TID PRN pain #30 t abs 07/23/24 diphenhydramine HCl 25 mg capsule 25 mg PO TID PRN all ergy symptoms 03/05/25 (Benadryl) #14 caps prednisone 50 mg tablet 50 mg PO QDAY #5 tabs acetaminophen 300 mg-codeine 30 mg 2 tab PO Q8H PRN pa in #20 tabs 04/18/25 tablet valacyclovir 1 gram tablet 1,000 mg PO TID 7 days #21 tabs 05/16/25 Allergies Allergy/AdvReac Type Severity Reaction Status Date / Time No Known Allergies Allergy Verified 04/17/25 21:55 Review of Systems Review of Systems Systems Reviewed: All systems reviewed, normal except as documented Integumentary/Breasts Skin/Breast: Reports as per HPI, Reports rash and Reports skin pain Past Medical History Past Medical History NEUROLOGIC: Negative Cerebrovascular Accident or Alzheimer's Disease CARDIAC: Negative Cardiac Disorders, Myocardial Infarction, Angina or Congestive Heart Failure RESPIRATORY: Negative Chronic Obstructive Pulmonary Disease (COPD) or Emphysema GASTROINTESTINAL: Negative Liver Cancer or Pancreatic Cancer GENITOURINARY: Negative Renal Disease MUSCULOSKELETAL: Negative Muscular Dystrophy or Bone Cancer ENDOCRINE: Negative Endocrine Disorders, Diabetes Mellitus Type 1 or Diabetes Mellitus Type 2 HEMATOLOGIC: Negative Blood Disorders OTHER HISTORY: Negative Down Syndrome or Developmental Delay Social History SMOKING STATUS: Current every day smoker SUBSTANCE USE: does not use ED Exam General Limitations: Present no limitations General appearance: Present alert and in no apparent distress Head Head exam: Present atraumatic Neck Neck exam: Present normal inspection, full ROM and trachea midline Chest Chest inspection: Present normal inspection and symmetric chest wall rise Extremities Exam Extremities exam: Present full ROM Neurological Exam Neurological exam: Present alert and oriented X3 Psychiatric Psychiatric exam: Present normal affect and normal mood Skin Skin exam: Present warm, dry, intact, normal color and rash Course Quality Measures none Orders Category Date Time Status Gabapentin [Neurontin] Med 05/16/25 21:09 Discontinued 300 mg PO X1 ONE Naproxen [Naprosyn] Med 05/16/25 21:09 Discontinued 500 mg PO X1 ONE Vital Signs Vital signs: Vital Signs Temperature 98.7 F 05/16/25 21:08 Pulse Rate 94 05/16/25 21:08 Respiratory Rate 18 05/16/25 21:08 Blood Pressure 131/79 H 05/16/25 21:08 Pulse Oximetry (%) 95 05/16/25 21:08 Oxygen Delivery Method Room Air 05/16/25 21:08 O2 at 95% on RA and WNLs Skin / Abscess / Foreign Body MDM Narrative MDM Narrative:: 59M with no significant PMH presents to ED with 3 days of RUE rash and pain. Physical exam reveals vesicular rash on RUE in dermatomal path. Patient is afebrile, calm, and alert. Meds and classification counselor given. Patient data External records reviewed:: [facility] previous records Clinical information provided by:: patient Social determinants that could affect healthcare access:: none Patient has the following chronic illnesses:: none How is presenting disease/condition affected by chronic disease/condition?: no chronic disease Evaluation data The following diagnostics were reviewed and interpreted by me:: other (specify) (none) Lab and/or radiology exams considered but not ordered:: not ordered Interpretation Summary: n/a Medications / Prescriptions Medications or Prescriptions considered but not ordered:: ordered Medication administrations:: Medication Administration History Discontinued Medications Gabapentin (Gabapentin 300 Mg Capsule) 300 mg PO X1 ONE Stop: 05/16/25 21:10 Naproxen (Naproxen 250 Mg Tablet) 500 mg PO X1 ONE Stop: 05/16/25 21:10 above Consultations Consultation(s) initiated? (list below): No Diagnosis Skin/Abscess Differential Diagnosis: abscess of skin or subcutaneous tissue, viral exanthem, dermatophytosis, urticaria, herpes zoster, allergic reaction to drug, cellulitis, eczema, insect bites, impetigo and contact dermatitis Most likely diagnosis given after review of the tests above:: shingles Admission Indicated Admission indicated?: not indicated Admission Request Was there a request for admission?: No Disposition Plan Disposition Plan: Discharge Discharge Attestation Discharge Attestation: The patient and all family members were given an opportunity to ask questions and understood the discharge instructions. Discharge instructions specifically effects, indications for sooner follow up or return to the emergency department, and the expected course of current diagnosis. Patient condition: Stable Discharge Plan Plan Patient Disposition: HOME (Self Care) Discharge Disposition comment: Stable Prescriptions/Referrals Prescriptions/Med Rec: New valacyclovir 1 gram tablet 1,000 mg PO TID 7 Days Qty: 21 0RF No Action cyclobenzaprine 10 mg tablet 10 mg PO TID PRN (Reason: muscle spasm) Qty: 30 0RF metformin 500 mg tablet 500 mg PO BID Qty: 60 0RF ibuprofen 800 mg tablet 800 mg PO TID PRN (Reason: pain) Qty: 30 0RF acetaminophen-codeine 300-30 mg tablet 2 tab PO Q8H MDD 6 PRN (Reason: pain) Qty: 20 0RF ibuprofen 800 mg tablet 800 mg PO TID PRN (Reason: pain) Qty: 30 0RF diphenhydramine HCl [Benadryl] 25 mg capsule 25 mg PO TID PRN (Reason: allergy symptoms) Qty: 14 0RF prednisone 50 mg tablet 50 mg PO QDAY Qty: 5 0RF Problem List Clinical Impression: Herpes zoster Patient/Caregiver Discharge Instructions Education Materials: ED Shingles (Herpes Zoster) Additional Instructions: Please follow-up with PCP within 24-48 hours and return immediately if symptoms worsen. Print Language: Ukrainian Stand Alone Forms: Patient Portal Info Letter MARSHA/ROBERTO Supervising Physician MARSHA/ROBERTO Supervising Physician: Dr. Perez
[2025-05-16] MEDS: NAPROXEN 250 MG TABLET 500 MG PO (21:37)
[2025-05-16] MEDS: GABAPENTIN 300 MG CAPSULE PO (21:37)
== END 2025-05-16 21:40 | disposition home or self-care (01) ==
LOC: SERX 21:32
PROVIDERS: Emergency Provider Emergency Medicine
DX: B02.9 Zoster without complications (principal)
CPT/HCPCS: 99283; A9270

== ENCOUNTER 2025-05-30 11:00 | Emergency (ER) | payer MEDICAID, SELFPAY ==
[2025-05-30 11:09] VITALS: BP 132/86; PULSE 87; RESP 20; TEMP 36.7; O2SAT 96; BMI 30.4
--- NOTE | 2025-05-30 11:33 | EDNOTE_ITS ---
ED General RME/HPI General Chief complaint: General Adult/Misc Complain Stated complaint: REDNESS TO LOWER BACK Time Seen by Provider: 05/30/25 11:23 Source: patient Arrival date/time: 05/30/25 11:00 59-year-old male with no known medical history presents to the emergency room with a chief complaint of a rash to his right lower back x 4 days Mode of arrival: ambulatory Limitations: no limitations Related Data Previous Rx's ?Medication ?Instructions ?Recorded cyclobenzaprine 10 mg tablet 10 mg PO TID PRN muscle s pasm #30 01/07/22 tabs ibuprofen 800 mg tablet 800 mg PO TID PRN pain #30 t abs 01/07/22 metformin 500 mg tablet 500 mg PO BID #60 tabs 01/07 ibuprofen 800 mg tablet 800 mg PO TID PRN pain #30 t abs 07/23/24 diphenhydramine HCl 25 mg capsule 25 mg PO TID PRN all ergy symptoms 03/05/25 (Benadryl) #14 caps prednisone 50 mg tablet 50 mg PO QDAY #5 tabs acetaminophen 300 mg-codeine 30 mg 2 tab PO Q8H PRN pa in #20 tabs 04/18/25 tablet valacyclovir 1 gram tablet 1,000 mg PO Q8H 7 days #21 tabs 05/30/25 Allergies Allergy/AdvReac Type Severity Reaction Status Date / Time No Known Allergies Allergy Verified 05/30/25 11:02 Review of Systems Review of Systems Systems Reviewed: All systems reviewed, normal except as documented Constitutional Constitutional: Reports system reviewed and no additional complaints, except as documented, Denies fatigue, Denies fever(s), Denies headache(s) and Denies weakness Eyes Eyes: Reports system reviewed and no additional complaints, except as documented, Denies blurry vision and Denies change in vision ENT Ears, Nose, Mouth, and Throat: Reports system reviewed and no additional complaints, except as documented, Denies otalgia, Denies headache(s), Denies nasal congestion, Denies throat swelling and Denies vertigo Cardiovascular Cardiovascular: Reports system reviewed and no additional complaints, except as documented, Denies chest pain, Denies dyspnea and Denies dyspnea on exertion Respiratory Respiratory: Reports system reviewed and no additional complaints, except as documented, Denies chest congestion, Denies cough, Denies dyspnea, Denies dyspnea on exertion and Denies wheezing Gastrointestinal Gastrointestinal: Reports system reviewed and no additional complaints, except as documented, Denies abdominal pain, Denies cramping, Denies nausea and Denies vomiting Genitourinary Genitourinary: Reports system reviewed and no additional complaints, except as documented, Denies dysuria and Denies hematuria Musculoskeletal Musculoskeletal: Reports system reviewed and no additional complaints, except as documented and Reports back pain Integumentary/Breasts Skin/Breast: Reports system reviewed and no additional complaints, except as documented and Denies wounds Neurologic Neurologic: Reports system reviewed and no additional complaints, except as documented, Denies confusion, Denies headache(s), Denies lack of coordination, Denies vertigo and Denies weakness Psychiatric Psychiatric: Reports system reviewed and no additional complaints, except as documented, Denies anxiety, Denies confusion, Denies depression, Denies paranoia, Denies suicidal ideation and Denies tactile hallucinations Endocrine Endocrine: Reports system reviewed and no additional complaints, except as documented and Denies fatigue Hematologic/Lymphatic Hematologic/Lymphatic: Reports system reviewed and no additional complaints, except as documented and Denies lymphadenopathy Allergic/Immunologic Allergic/Immunologic: Reports system reviewed and no additional complaints, except as documented, Denies throat swelling, Denies urticaria and Denies wheezing Past Medical History Past Medical History NEUROLOGIC: Negative Cerebrovascular Accident or Alzheimer's Disease CARDIAC: Negative Cardiac Disorders, Myocardial Infarction, Angina or Congestive Heart Failure RESPIRATORY: Negative Chronic Obstructive Pulmonary Disease (COPD) or Emphysema GASTROINTESTINAL: Negative Liver Cancer or Pancreatic Cancer GENITOURINARY: Negative Renal Disease MUSCULOSKELETAL: Negative Muscular Dystrophy or Bone Cancer ENDOCRINE: Negative Endocrine Disorders, Diabetes Mellitus Type 1 or Diabetes Mellitus Type 2 HEMATOLOGIC: Negative Blood Disorders OTHER HISTORY: Negative Down Syndrome or Developmental Delay Social History SMOKING STATUS: Current every day smoker SUBSTANCE USE: does not use ED Exam General Limitations: Present no limitations General appearance: Present alert and in no apparent distress Head Head exam: Present atraumatic Eye Eye exam: Present normal appearance, PERRL and EOMI ENT ENT exam: Present normal exam, normal oropharynx and mucous membranes moist Neck Neck exam: Present normal inspection, full ROM and trachea midline Chest Chest inspection: Present normal inspection and symmetric chest wall rise Respiratory Respiratory exam: Present normal lung sounds bilaterally Cardiovascular Cardiovascular exam: Present regular rate, normal rhythm and normal heart sounds Abdominal Exam Abdominal exam: Present soft and normal bowel sounds Extremities Exam Extremities exam: Present normal inspection and full ROM Back Exam Back exam: Present normal inspection and full ROM Neurological Exam Neurological exam: Present alert, oriented X3 and CN II-XII intact Psychiatric Psychiatric exam: Present normal affect and normal mood Skin Skin exam: Present warm, dry, intact and normal color Expanded Skin Exam Distribution: Present back Description: Present tenderness, erythematous, vesicular and blisters Body image: 2 1. Erythemic vesicular rash Course Quality Measures none Orders Category Date Time Status Ketorolac Inj [Toradol Inj] Med 05/30/25 11:27 Discontinued 30 mg IM X1 ONE Vital Signs Vital signs: Vital Signs Temperature 98.0 F 05/30/25 11:09 Pulse Rate 87 05/30/25 11:09 Respiratory Rate 20 05/30/25 11:09 Blood Pressure 132/86 H 05/30/25 11:09 Pulse Oximetry (%) 96 05/30/25 11:09 Oxygen Delivery Method Room Air 05/30/25 11:09 Discharge Plan Prescriptions/Referrals Prescriptions/Med Rec: New valacyclovir 1 gram tablet 1,000 mg PO Q8H 7 Days Qty: 21 0RF No Action cyclobenzaprine 10 mg tablet 10 mg PO TID PRN (Reason: muscle spasm) Qty: 30 0RF metformin 500 mg tablet 500 mg PO BID Qty: 60 0RF ibuprofen 800 mg tablet 800 mg PO TID PRN (Reason: pain) Qty: 30 0RF acetaminophen-codeine 300-30 mg tablet 2 tab PO Q8H MDD 6 PRN (Reason: pain) Qty: 20 0RF ibuprofen 800 mg tablet 800 mg PO TID PRN (Reason: pain) Qty: 30 0RF diphenhydramine HCl [Benadryl] 25 mg capsule 25 mg PO TID PRN (Reason: allergy symptoms) Qty: 14 0RF prednisone 50 mg tablet 50 mg PO QDAY Qty: 5 0RF Problem List Clinical Impression: Shingles rash Patient/Caregiver Discharge Instructions Education Materials: ED Shingles (Herpes Zoster) Additional Instructions: Please follow-up with your primary care provider in the next 24 to 48 hours Medication was sent to your pharmacy please pick it up and take it as indicated For any evidence of worsening signs or symptoms return to the emergency room immediately Print Language: Honduran PA/PERFORMANCE TEST CONSULTANT Supervising Physician PA/PERFORMANCE TEST CONSULTANT Supervising Physician: Dr. Martinez MDM Narrative MDM hospital course (for use when minimal MDM required): 59-year-old male with no known medical history presents to the emergency room with a chief complaint of a rash to his right lower back x 4 days Patient is hemodynamically stable and in no apparent distress. Patient is afebrile not tachycardic not tachypneic Physical examination shows a rash to his back that is consistent with shingles. Antivirals are sent to the patient's pharmacy Patient was educated to follow-up with primary care provider and return to the emergency room for any evidence of worsening signs or symptoms Clinical Information Provided by: patient Medical Records reviewed None Meds/Rx considered, not ordered None Labs/Rad/Tests considered, not ordered None Chronic Illness/Social Conditions which may negatively complicate care or outcome(s)-explain: None or not applicable EKG EKG not done Labs Labs: none Imaging Imaging interpretation: none Medication Administration(s) Medication Administration History Discontinued Medications Ketorolac Tromethamine (Ketorolac Inj 60 Mg/2 Ml Vial) 30 mg IM X1 ONE Stop: 05/30/25 11:28 Diagnosis Differential Diagnosis ED Complaint MDM: Shingles Diagnoses ruled out and/or further discussions: Allergic reaction/cellulitis/contact dermatitis
[2025-05-30] MEDS: KETOROLAC INJ 60 MG/2 ML VIAL 30 MG IM (12:02)
== END 2025-05-30 12:21 | disposition home or self-care (01) ==
PROVIDERS: Emergency Provider Family Medicine
DX: B02.9 Zoster without complications (principal)
CPT/HCPCS: 96372; 99283; J1885

== ENCOUNTER 2025-06-08 08:29 | Emergency (ER) | payer MEDICAID, SELFPAY ==
[2025-06-08 08:30] VITALS: BMI 33.3
[2025-06-08 08:36] VITALS: BP 156/94; PULSE 102; RESP 18; TEMP 36.6; O2SAT 97
[2025-06-08 09:06] LABS: Basophils # (Auto) 0.1 Thou/mm3 (0.0-0.2); Basophils % (Auto) 1 % (0-2.5); Eosinophils # (Auto) 0.1 Thou/mm3 (0.0-0.5); Eosinophils % (Auto) 1 % (0-10); Hematocrit 44.7 % (41.0-53.0); Hemoglobin 16.0 g/dL (13.5-16.0); Immature Granulocytes Auto 0.04 Thou/mm3 (0.00-0.00); Lymphocytes # (Auto) 1.7 Thou/mm3 (1.0-4.8); Lymphocytes % (Auto) 18 % (10-50); Mean Corpuscular HGB Conc 35.8 g/dl (31.0-37.0); Mean Corpuscular Hemoglobin 32.7 pg (25.0-35.0); Mean Corpuscular Volume 91 fL (80-100); Monocytes # (Auto) 0.7 Thou/mm3 (0.0-0.8); Monocytes % (Auto) 8 % (0-12); Neutrophils # (Auto) 6.8 Thou/mm3 (1.8-7.7); Neutrophils % (Auto) 73 % (37-80); Nucleated Red Blood Cell # 0.00 Thou/mm3 (0.00-0.00); Nucleated Red Blood Cell % 0 /100 WBC (0); Platelet Count 255 Thou/mm3 (140-440); RDW Standard Deviation 42.5 fL (35.1-43.9); Red Blood Count 4.90 Miln/mm3 (4.50-5.90); White Blood Count 9.3 Thou/mm3 (3.8-10.6)
[2025-06-08 09:25] LABS: Collection Type, Urine Clean Catch
[2025-06-08 09:36] LABS: Alanine Aminotransferase 29 U/L (10-49); Albumin, Serum 5.0 gm/dL (3.5-5.0); Albumin/Globulin Ratio 2.1 (1.2-2.2); Alkaline Phosphatase 158 U/L (46-116); Anion Gap 9 (7-16); Aspartate Amino Transferase 25 U/L (0-34); BUN/Creatinine Ratio 11 Ratio (12-20); Bilirubin,Total 0.6 mg/dL (0.3-1.2); Blood Urea Nitrogen 8 mg/dL (9-23); Calcium 10.0 mg/dL (8.3-10.6); Calcium (Corrected) 10.0 mg/dL (8.5-10.1); Carbon Dioxide 22.6 mMol/L (20.0-31.0); Chloride 107 mMol/L (98-107); Creatinine (Component) 0.7 mg/dL (0.6-1.3); Estimated Creatinine Clearance 117.6 mL/min (>60); Globulin 2.4 gm/dL (2.3-3.5); Glucose 229 mg/dL (74-106); Osmolality,Calculated 282 (275-295); Potassium 3.9 mMol/L (3.4-5.1); Sodium 139 mMol/L (136-145); Total Protein 7.4 gm/dL (5.7-8.2); eGFR > 60 See Note
[2025-06-08 09:38] LABS: Bacteria,Urine Rare; Bilirubin,Urine Negative (Negative); Blood,Urine Negative (Negative); Clarity,Urine Clear (Clear/Hazy); Color,Urine Lt-Yellow (Lt Yel-Yel); Culture Indicated,Urine Not Indicated; Glucose, Urine 4+ (Negative); Ketones,Urine Negative (Negative); Leukocyte Esterase,Urine Negative (Negative); Nitrite,Urine Negative (Negative); PH,Urine 6.0 (5.0-7.0); Protein,Urine Negative (Neg - Trace); RBC,Urine 3 /hpf (0-3); Specific Gravity,Urine 1.030 (1.001-1.035); Squamous Epithelial Cell,Urine 1 /hpf (0-5); Urobilinogen,Urine Negative mg/dL (0.0-1.0); WBC,Urine 1 /hpf (0-5)
--- NOTE | 2025-06-08 10:17 | EDNOTE_ITS ---
ED Male Genitalurinary RME/HPI General Chief complaint: Urogenital-Male Stated complaint: FREQUENT URINATIO SINCE LAST NIGHT Time Seen by Provider: 06/08/25 08:33 Arrival date/time: 06/08/25 08:29 60-year-old male medical history significant for diabetes presents the emerged part today complaints of dysuria frequent urination last night patient reports no fever nausea or vomiting Limitations: no limitations Related Data Previous Rx's ?Medication ?Instructions ?Recorded cyclobenzaprine 10 mg tablet 10 mg PO TID PRN muscle s pasm #30 01/07/22 tabs ibuprofen 800 mg tablet 800 mg PO TID PRN pain #30 t abs 01/07/22 metformin 500 mg tablet 500 mg PO BID #60 tabs 01/07 ibuprofen 800 mg tablet 800 mg PO TID PRN pain #30 t abs 07/23/24 diphenhydramine HCl 25 mg capsule 25 mg PO TID PRN all ergy symptoms 03/05/25 (Benadryl) #14 caps prednisone 50 mg tablet 50 mg PO QDAY #5 tabs acetaminophen 300 mg-codeine 30 mg 2 tab PO Q8H PRN pa in #20 tabs 04/18/25 tablet phenazopyridine 100 mg tablet 100 mg PO TID 2 days #6 tabs 06/08/25 (Pyridium) Allergies Allergy/AdvReac Type Severity Reaction Status Date / Time No Known Allergies Allergy Verified 06/08/25 08:32 Review of Systems Review of Systems Systems Reviewed: All systems reviewed, normal except as documented Constitutional Constitutional: Reports system reviewed and no additional complaints, except as documented, Denies fever(s) and Denies headache(s) Eyes Eyes: Reports system reviewed and no additional complaints, except as documented and Denies blurry vision ENT Ears, Nose, Mouth, and Throat: Reports system reviewed and no additional complaints, except as documented, Denies headache(s), Denies nasal congestion and Denies nasal discharge Cardiovascular Cardiovascular: Reports system reviewed and no additional complaints, except as documented, Denies chest pain and Denies dyspnea Respiratory Respiratory: Reports system reviewed and no additional complaints, except as documented, Denies chest congestion, Denies cough and Denies dyspnea Gastrointestinal Gastrointestinal: Reports system reviewed and no additional complaints, except as documented and Denies abdominal pain Genitourinary Genitourinary: Reports system reviewed and no additional complaints, except as documented, Reports dysuria and Denies flank pain Integumentary/Breasts Skin/Breast: Reports system reviewed and no additional complaints, except as documented and Denies rash Neurologic Neurologic: Reports system reviewed and no additional complaints, except as documented, Reports as per HPI and Denies headache(s) Past Medical History Past Medical History NEUROLOGIC: Negative Cerebrovascular Accident or Alzheimer's Disease CARDIAC: Negative Cardiac Disorders, Myocardial Infarction, Angina or Congestive Heart Failure RESPIRATORY: Negative Chronic Obstructive Pulmonary Disease (COPD) or Emphysema GASTROINTESTINAL: Negative Liver Cancer or Pancreatic Cancer GENITOURINARY: Negative Renal Disease MUSCULOSKELETAL: Negative Muscular Dystrophy or Bone Cancer ENDOCRINE: Negative Endocrine Disorders, Diabetes Mellitus Type 1 or Diabetes Mellitus Type 2 HEMATOLOGIC: Negative Blood Disorders OTHER HISTORY: Negative Down Syndrome or Developmental Delay Social History SMOKING STATUS: Current some day smoker SUBSTANCE USE: does not use ED Exam General Limitations: Present no limitations General appearance: Present alert and in no apparent distress Head Head exam: Present atraumatic, normocephalic and normal inspection Eye Eye exam: Present normal appearance, PERRL and EOMI; Absent conjunctival inj ection ENT ENT exam: Present normal exam, normal oropharynx and mucous membranes moist Neck Neck exam: Present normal inspection, full ROM and trachea midline Chest Chest inspection: Present normal inspection and symmetric chest wall rise Respiratory Respiratory exam: Present normal lung sounds bilaterally; Absent respiratory distress Cardiovascular Cardiovascular exam: Present regular rate, normal rhythm and normal heart sounds Abdominal Exam Abdominal exam: Present soft and normal bowel sounds; Absent distention, tenderness, guarding, rebound or rigidity Extremities Exam Extremities exam: Present normal inspection and full ROM Back Exam Back exam: Present normal inspection and full ROM Neurological Exam Neurological exam: Present alert, oriented X3 and CN II-XII intact Psychiatric Psychiatric exam: Present normal affect and normal mood Skin Skin exam: Present warm, dry, intact and normal color Course Quality Measures none Orders Category Date Time Status Bedside Blood Glucose NOW Care 06/08/25 08:39 Completed CBC Stat Lab 06/08/25 08:47 Completed CMP [Comprehensive Metabolic Panel] Stat Lab 06/08/25 08:47 Completed UA, C/S IF [Urinalysis, C/S if Indicated] Stat Lab 06/08/25 09:14 Completed Vital Signs Vital signs: Vital Signs Temperature 97.9 F 06/08/25 08:36 Pulse Rate 102 H 06/08/25 08:36 Respiratory Rate 18 06/08/25 08:36 Blood Pressure 156/94 H 06/08/25 08:36 Pulse Oximetry (%) 97 06/08/25 08:36 O2 saturation 97% room air within normal limits Urogenital - Male MDM Narrative MDM Narrative:: 60-year-old male presents the emergency department today complaints of dysuria frequent urination last night patient reports no fever nausea or vomiting On exam patient well-appearing patient does not appear ill or toxic acute distress Lab work obtained no acute emergent findings noted Patient blood sugars elevated and patient has dysuria therefore patient will be given a prescription for Pyridium Patient with no evidence of infection Patient discharged home in no distress to follow-up with primary care doctor in the next 24 to 48 hours and for any worsening symptoms to return to the ER immediately Patient data External records reviewed:: [facility] previous records Clinical information provided by:: patient Social determinants that could affect healthcare access:: none Patient has the following chronic illnesses:: Diabetes How is presenting disease/condition affected by chronic disease/condition?: exacerbated by Evaluation data The following diagnostics were reviewed and interpreted by me:: lab results Lab and/or radiology exams considered but not ordered:: Labs obtained Interpretation Summary: Reviewed by me Medications / Prescriptions Medications or Prescriptions considered but not ordered:: Given Medication administrations:: Given Consultations Consultation(s) initiated? (list below): No Diagnosis Urogenital Male Differential Diagnosis: urinary tract infection and urethritis Most likely diagnosis given after review of the tests above:: Dysuria Admission Indicated Admission indicated?: not indicated Admission Request Was there a request for admission?: No Disposition Plan Disposition Plan: Discharge Discharge Attestation Discharge Attestation: The patient and all family members were given an opportunity to ask questions and understood the discharge instructions. Discharge instructions specifically effects, indications for sooner follow up or return to the emergency department, and the expected course of current diagnosis. Patient condition: Stable Discharge Plan Plan Patient Disposition: HOME (Self Care) Discharge Disposition comment: Stable Prescriptions/Referrals Prescriptions/Med Rec: New phenazopyridine [Pyridium] 100 mg tablet 100 mg PO TID 2 Days Qty: 6 0RF No Action cyclobenzaprine 10 mg tablet 10 mg PO TID PRN (Reason: muscle spasm) Qty: 30 0RF metformin 500 mg tablet 500 mg PO BID Qty: 60 0RF ibuprofen 800 mg tablet 800 mg PO TID PRN (Reason: pain) Qty: 30 0RF acetaminophen-codeine 300-30 mg tablet 2 tab PO Q8H MDD 6 PRN (Reason: pain) Qty: 20 0RF ibuprofen 800 mg tablet 800 mg PO TID PRN (Reason: pain) Qty: 30 0RF diphenhydramine HCl [Benadryl] 25 mg capsule 25 mg PO TID PRN (Reason: allergy symptoms) Qty: 14 0RF prednisone 50 mg tablet 50 mg PO QDAY Qty: 5 0RF Referrals: Danna Bedoya FNP-C [Primary Care Provider] - In 1 week Problem List Clinical Impression: Frequent urination Patient/Caregiver Discharge Instructions Education Materials: Overactive Bladder Syndrome (OAB) Additional Instructions: Please follow up with your primary care doctor in the next 24-48hrs for any worsening symptoms return here immediately Print Language: Somali Stand Alone Forms: Melanie Award Info., Work/School Release, Patient Portal Info Letter MARSHA/ROBERTO Supervising Physician MARSHA/ROBERTO Supervising Physician: Dr. [email or web address]
[2025-06-08 10:26] VITALS: BP 135/88; PULSE 78; RESP 18; TEMP 36.7; O2SAT 96
== END 2025-06-08 10:43 | disposition home or self-care (01) ==
PROVIDERS: Emergency Provider Nurse Practitioner Primary Care; PCP Nurse Practitioner Family
DX: R35.0 Frequency of micturition (principal)
CPT/HCPCS: 36415; 80053; 81001; 85025; 99283

== ENCOUNTER 2025-06-20 02:06 | Emergency (ER) | payer MEDICAID, SELFPAY ==
[2025-06-20 02:07] VITALS: BMI 33.3
[2025-06-20 02:11] VITALS: BP 138/85; PULSE 96; RESP 19; TEMP 36.4; O2SAT 96
--- NOTE | 2025-06-20 02:40 | XR_ITS ---
EXAMINATION: Lumbar spine 3 views TECHNIQUE: AP lateral, lateral lower lumbar spine 3 views Date and time: June 20, 2025, 0245 hours, comparison September 09, 2024 INDICATIONS: Lower back pain radiating to the legs beginning yesterday. FINDINGS: Status post transpedicular lumbar fusion L3-S1 with anatomic alignment Prominent lumbar spondylosis Advanced degenerative disc disease above the fusion site at L2-L3 No lumbar fracture IMPRESSION: Status post transpedicular lumbar stabilization L3-S1 with satisfactory alignment Advanced degenerative disc disease above the fusion site, L2-L3
--- NOTE | 2025-06-20 02:41 | PD.EDEXREM ---
ED Extremity Problem RME/HPI General Chief complaint: Extremity Problem,Nontraumatic Stated complaint: CRAMPING BILATERAL LEGS, LOWER BACK PAIN Time Seen by Provider: 06/20/25 02:15 Arrival date/time: 06/20/25 02:06 60-year-old male with a history of lumbar disc fusion reports with complaints of lower back pain that radiates to bilateral lower extremities. 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 Patient denies any numbness or tingling weakness or decreased range of motion in the lower extremities changes in bowel or bladder habits fever or chills. Patient states that he took meloxicam yesterday evening with no improvement of his symptoms Limitations: no limitations Related Data Previous Rx's ?Medication ?Instructions ?Recorded cyclobenzaprine 10 mg tablet 10 mg PO TID PRN muscle spasm #30 01/07/22 tabs ibuprofen 800 mg tablet 800 mg PO TID PRN pain #30 tabs 01/07/22 metformin 500 mg tablet 500 mg PO BID #60 tabs 01/07/22 ibuprofen 800 mg tablet 800 mg PO TID PRN pain #30 tabs 07/23/24 diphenhydramine HCl 25 mg capsule 25 mg PO TID PRN allergy symptoms 03/05/25 (Benadryl) #14 caps prednisone 50 mg tablet 50 mg PO QDAY #5 tabs 03/05/25 acetaminophen 300 mg-codeine 30 mg 2 tab PO Q8H PRN pain #20 tabs 04/18/25 tablet methocarbamol 750 mg tablet 750 mg PO TID PRN pain #30 tabs 06/20/25 Allergies Allergy/AdvReac Type Severity Reaction Status Date / Time No Known Allergies Allergy Verified 06/08/25 08:32 Review of Systems Constitutional Constitutional: Denies fever(s) and Denies weakness Cardiovascular Cardiovascular: Denies chest pain and Denies dyspnea Respiratory Respiratory: Denies cough and Denies dyspnea Gastrointestinal Gastrointestinal: Denies nausea and Denies vomiting Genitourinary Genitourinary: Denies dysuria, Reports flank pain, Denies hematuria, Denies scrotal swelling, Denies urinary frequency, Denies urinary hesitancy, Denies urinary incontinence and Denies urinary urgency Musculoskeletal Musculoskeletal: Denies numbness and Denies tingling Integumentary/Breasts Skin/Breast: Denies rash, Denies unusual bruising and Denies wounds Neurologic Neurologic: Denies numbness, Denies tingling and Denies weakness Past Medical History Past Medical History NEUROLOGIC: Negative Cerebrovascular Accident or Alzheimer's Disease CARDIAC: Negative Cardiac Disorders, Myocardial Infarction, Angina or Congestive Heart Failure RESPIRATORY: Negative Chronic Obstructive Pulmonary Disease (COPD) or Emphysema GASTROINTESTINAL: Negative Liver Cancer or Pancreatic Cancer GENITOURINARY: Negative Renal Disease MUSCULOSKELETAL: Negative Muscular Dystrophy or Bone Cancer ENDOCRINE: Negative Endocrine Disorders, Diabetes Mellitus Type 1 or Diabetes Mellitus Type 2 HEMATOLOGIC: Negative Blood Disorders OTHER HISTORY: Negative Down Syndrome or Developmental Delay Social History SMOKING STATUS: Current every day smoker SUBSTANCE USE: does not use ED Exam General Limitations: Present no limitations General appearance: Present alert and in no apparent distress Chest Chest inspection: Present normal inspection and symmetric chest wall rise Respiratory Respiratory exam: Present normal lung sounds bilaterally Cardiovascular Cardiovascular exam: Present regular rate, normal rhythm and normal heart sounds Abdominal Exam Abdominal exam: Present soft and normal bowel sounds; Absent tenderness Extremities Exam Extremities exam: Present normal inspection, full ROM and normal capillary refill; Absent tenderness Back Exam Back exam: Present sciatic notch tenderness (R) and straight leg raise (R); Absent normal inspection (healed surgical scar lumbar spine), full ROM (Patient unable to perform any range of motion secondary to pain), CVA tenderness (R), CVA tenderness (L), sciatic notch tenderness (L) or straight leg raise (L) Neurological Exam Neurological exam: Present alert, oriented X3 and CN II-XII intact Psychiatric Psychiatric exam: Present normal affect and normal mood Skin Skin exam: Present warm, dry, intact and normal color Course Course Course Narrative: X-ray significant for hardware appearing to be in place no acute fractures or derangements of the spine Quality Measures none Orders Category Date Time Status XR lumbar spine 2-3V Stat Exams 06/20/25 02:40 Taken Ketorolac Inj [Toradol Inj] Med 06/20/25 02:40 Discontinued 30 mg IM X1 ONE traMADol HCL [Ultram] Med 06/20/25 02:40 Discontinued 50 mg PO X1 ONE Vital Signs Vital signs: Vital Signs Temperature 97.5 F 06/20/25 02:11 Pulse Rate 96 06/20/25 02:11 Respiratory Rate 19 06/20/25 02:11 Blood Pressure 138/85 H 06/20/25 02:11 Pulse Oximetry (%) 96 06/20/25 02:11 Oxygen Delivery Method Room Air 06/20/25 02:11 Extremity Problem Patient data External records reviewed:: None Clinical information provided by:: patient Social determinants that could affect healthcare access:: none Patient has the following chronic illnesses:: lumbar radiculopathy, lumbar spine pain How is presenting disease/condition affected by chronic disease/condition?: caused by Evaluation data The following diagnostics were reviewed and interpreted by me:: radiology exam(s) Lab and/or radiology exams considered but not ordered:: none Interpretation Summary: Lumbar spine x-ray is negative for acute derangements or fractures of the spine Medications / Prescriptions Medications or Prescriptions considered but not ordered:: None Medication administrations:: Medication Administration History Discontinued Medications Ketorolac Tromethamine (Ketorolac Inj 30 Mg/Ml Vial) 30 mg IM X1 ONE Stop: 06/20/25 02:41 Last Admin: 06/20/25 03:10 Dose: 30 mg Documented By: ROSY Tramadol HCl (Tramadol Hcl 50 Mg Tablet) 50 mg PO X1 ONE Stop: 06/20/25 02:41 Last Admin: 06/20/25 03:09 Dose: 50 mg Documented By: ROSY As above Consultations Consultation(s) initiated? (list below): No Diagnosis Most likely diagnosis given after review of the tests above:: Lumbar radiculopathy, lumbar strain Admission Indicated Admission indicated?: not indicated Admission Request Was there a request for admission?: No Disposition Plan Disposition Plan: Discharge Discharge Attestation Discharge Attestation: The patient and all family members were given an opportunity to ask questions and understood the discharge instructions. Discharge instructions specifically effects, indications for sooner follow up or return to the emergency department, and the expected course of current diagnosis. Patient condition: Stable Discharge Plan Plan Patient Disposition: HOME (Self Care) Prescriptions/Referrals Prescriptions/Med Rec: New methocarbamol 750 mg tablet 750 mg PO TID PRN (Reason: pain) Qty: 30 0RF No Action cyclobenzaprine 10 mg tablet 10 mg PO TID PRN (Reason: muscle spasm) Qty: 30 0RF metformin 500 mg tablet 500 mg PO BID Qty: 60 0RF ibuprofen 800 mg tablet 800 mg PO TID PRN (Reason: pain) Qty: 30 0RF acetaminophen-codeine 300-30 mg tablet 2 tab PO Q8H MDD 6 PRN (Reason: pain) Qty: 20 0RF ibuprofen 800 mg tablet 800 mg PO TID PRN (Reason: pain) Qty: 30 0RF diphenhydramine HCl [Benadryl] 25 mg capsule 25 mg PO TID PRN (Reason: allergy symptoms) Qty: 14 0RF prednisone 50 mg tablet 50 mg PO QDAY Qty: 5 0RF Referrals: Danna Bedoya FNP-C [Primary Care Provider] - In 1 week Problem List Clinical Impression: Lumbar spine strain, Radiculopathy Patient/Caregiver Discharge Instructions Discharge Activity: activity as tolerated Education Materials: Back Safety: Basics of Good Posture, Lumbar Stretch (Flexibility) Additional Instructions: The pain in your legs is most likely caused by the nerves in your back. You should take prescribed medications along with the meloxicam to help with your pain hydrate well follow-up with your primary care provider for possible PT and/or chiropractic referral Print Language: Guamanian Stand Alone Forms: Melanie Award Info., Patient Portal Info Letter
[2025-06-20] MEDS: KETOROLAC INJ 30 MG/ML VIAL IM (03:10)
== END 2025-06-20 03:39 | disposition home or self-care (01) ==
PROVIDERS: Emergency Provider Emergency Medicine; PCP Nurse Practitioner Family
DX: S39.012A Strain of muscle, fascia and tendon of lower back, initial encounter (principal); M54.16 Radiculopathy, lumbar region; X50.0XXA Overexertion from strenuous movement or load, initial encounter
CPT/HCPCS: 72100; 96372; 99281; J1885; A9270